=== PATIENT | female | born 1955 | race Caucasian/White ===

== ENCOUNTER 2017-07-11 20:28 | Emergency (ER) | payer OTHER ==
[~2017-07-11] VITALS: Ht 170.2 cm; Wt 75.5 kg
[~2017-07-11 20:28] MED LIST: CELEXA10 MG PO; LEXAPRO10 MG PO; TRAMADOL HCL50 MG PO
[2017-07-12 02:04] VITALS: BP 124/75
== END 2017-07-12 02:12 | disposition home or self-care (01) ==
LOC: EME → TRA 20:28 → EME 20:28 → EDBD 20:28 → TRA 07-12 02:12
PROC: 0HQ0XZZ Repair Scalp Skin, External Approach (ICD-10-PCS; principal; 2017-07-11)
DX: S01.01XA Laceration without foreign body of scalp, initial encounter (principal); S09.90XA Unspecified injury of head, initial encounter; S50.02XA Contusion of left elbow, initial encounter; S80.00XA Contusion of unspecified knee, initial encounter; F10.129 Alcohol abuse with intoxication, unspecified; V47.5XXA Car driver injured in collision with fixed or stationary object in traffic accident, initial encounter; Y92.411 Interstate highway as the place of occurrence of the external cause; S01.512A Laceration without foreign body of oral cavity, initial encounter; M54.2 Cervicalgia; R51 Headache; K74.60 Unspecified cirrhosis of liver; F32.9 Major depressive disorder, single episode, unspecified; Z88.8 Allergy status to other drugs, medicaments and biological substances
CPT/HCPCS: 71010; 72040; 73080; 99281; 99285